=== PATIENT | male | born 1970 | race Two or more races ===

== ENCOUNTER 2019-12-12 21:27 | Emergency (ER) | payer MEDICAID, OTHER ==
[~2019-12-12] VITALS: Ht 162.6 cm; Wt 64.4 kg
[2019-12-12 21:37] VITALS: BP 128/80
[2019-12-12] MEDS ORDERED: IBUPROFEN 600 MG TABLET PO ONE ×2 (22:24→22:30)
== END 2019-12-12 22:36 | disposition home or self-care (01) ==
LOC: ER 21:28
DX: F10.10 Alcohol abuse, uncomplicated (principal); M79.672 Pain in left foot; M79.673 Pain in unspecified foot; Y90.9 Presence of alcohol in blood, level not specified; Z59.0 Homelessness